=== PATIENT | male | born 1940 | race Asian ===

== ENCOUNTER 2017-06-15 12:54 | Day surgery (SDC) | payer MEDICARE, MEDICAID ==
[~2017-06-15] VITALS: Ht 162.6 cm; Wt 68.0 kg
[~2017-06-15 12:54] MED LIST: FLO0.4C PO; LISI-600 PO
[2017-06-15] MEDS ORDERED: LIDOcaine Viscous 15ml cup ONE (13:18)
[2017-06-15] MEDS ORDERED: fentaNYL/PF 50MCG/1 ML 2ML syringe ONE (13:18)
[2017-06-15] MEDS ORDERED: midazolam 2 mg/2 ml injection ONE (13:18)
[2017-06-15] MEDS ORDERED: OMEP20CA10 PO (13:33)
[2017-06-15] MEDS ORDERED: ASPI-611 PO (13:34)
[2017-06-15] MEDS ORDERED: AMLO10TA PO (13:35)
[2017-06-15 13:37] VITALS: BP 182/95
[2017-06-15 13:59] VITALS: BP 171/99
[2017-06-15 14:09] VITALS: BP 179/101
[2017-06-15 14:19] VITALS: BP 181/100
== END 2017-06-15 14:30 | disposition home or self-care (01) ==
LOC: GI LAB 12:54
PROVIDERS: ATTEND Internal Medicine Gastroenterology
DX: K44.9 Diaphragmatic hernia without obstruction or gangrene (principal); F17.210 Nicotine dependence, cigarettes, uncomplicated; K21.9 Gastro-esophageal reflux disease without esophagitis; Z72.89 Other problems related to lifestyle; Z79.82 Long term (current) use of aspirin; Z79.899 Other long term (current) drug therapy
CPT/HCPCS: 43235; J2250; J3010; J7030; A4620; G0500

== ENCOUNTER 2018-07-18 13:09 | Emergency (ER) | payer MEDICAID, MEDICARE ==
[~2018-07-18] VITALS: Ht 157.5 cm; Wt 75.0 kg
[~2018-07-18 13:09] MED LIST changes: +AMLO10TA PO; +ASPI-611 PO; -FLO0.4C PO; +OMEP20CA10 PO
[2018-07-18 13:11] VITALS: BP 198/81
[2018-07-18 13:37] LABS: BASOPHILS % (AUTO) 0.4 % (0-1); EOSINOPHILS % (AUTO) 0.5 % (0-6); HEMATOCRIT 37.5 % (42.0-52.0); HEMOGLOBIN 12.3 g/dl (14.0-17.9); LYMPHOCYTES % (AUTO) 23.1 % (21-51); MEAN CORPUSCULAR HEMOGLOBIN 27.1 PG (27.0-31.0); MEAN CORPUSCULAR HGB CONC 32.7 g/dL (33.0-36.5); MEAN CORPUSCULAR VOLUME 82.9 FL (78-98); MEAN PLATELET VOLUME 9.4 FL (7.4-10.4); MONOCYTES # (AUTO) 0.3 X10'3 (0-0.9); MONOCYTES % (AUTO) 6.8 % (2-12); NEUTROPHILS # (AUTO) 2.9 X10'3 (1.8-7.7); NEUTROPHILS % (AUTO) 69.2 % (42-75); PLATELET COUNT 146 X10'3 (140-440); RED BLOOD COUNT 4.53 X10'6 (4.70-6.10); RED CELL DISTRIBUTION WIDTH 13.9 % (11.5-14.5); WHITE BLOOD COUNT 4.2 X10'3 (4.5-11.0)
[2018-07-18 13:50] LABS: ALANINE AMINOTRANSFERASE 20 U/L (12-78); ALBUMIN 3.6 G/DL (3.4-5.0); ALBUMIN/GLOBULIN RATIO 1.2 (1.1-1.5); ALKALINE PHOSPHATASE 97 IU/L (46-116); ANION GAP 6 (8-16); ASPARTATE AMINO TRANSFERASE 16 U/L (10-37); BILIRUBIN,TOTAL 0.5 MG/DL (0.1-1.0); BLOOD UREA NITROGEN 23 MG/DL (7-18); BUN/CREATININE RATIO 19.5 (5.4-32.0); CALCIUM 8.7 MG/DL (8.5-10.1); CHLORIDE 108 MMOL/L (99-107); CREATININE 1.18 MG/DL (0.60-1.10); GLUCOSE 132 MG/DL (70-104); POTASSIUM 3.5 MMOL/L (3.5-5.1); SODIUM 143 MMOL/L (135-145); TOTAL CARBON DIOXIDE 29.5 MMOL/L (24-32); TOTAL PROTEIN 6.7 G/DL (6.4-8.2); eGFR 59 ML/MIN
[2018-07-18 13:52] LABS: PROTHROMBIN TIME 10.4 SECONDS (9.0-12.0)
[2018-07-18] MEDS ORDERED: HYDROcodone/acetaminophen 10/325mg tab PO ONE (14:05)
[2018-07-18 14:40] LABS: CLARITY,URINE CLEAR (Clear); COLOR,URINE YELLOW (Yellow); GLUCOSE, URINE 500 mg/dl (Neg); KETONES,URINE NEGATIVE (Neg); LEUKOCYTE ESTERASE ,URINE NEGATIVE (Neg); NITRITES, URINE NEGATIVE (Neg); OCCULT BLOOD,URINE NEGATIVE (Neg); PROTEIN,URINE NEGATIVE (Neg)
[2018-07-18 14:42] LABS: UA COLLECTION TYPE CLN CATCH MIDSTREAM
== END 2018-07-18 14:21 | disposition home or self-care (01) ==
LOC: ER 13:09
DX: R10.33 Periumbilical pain (principal); D64.9 Anemia, unspecified; I10 Essential (primary) hypertension; G89.29 Other chronic pain; Z79.82 Long term (current) use of aspirin
CPT/HCPCS: 36415; 80053; 81003; 85025; 85610; 99283